=== PATIENT | male | born 1950 | race Caucasian/White ===

== ENCOUNTER 2017-08-24 07:22 | Emergency (ER) | payer OTHER ==
--- NOTE | 2017-08-24 07:48 | CT ---
CT OF THE BRAIN WITHOUT CONTRAST: Date: 08/24/17 COMPARISON: None. HISTORY: Right-sided weakness for 2 days. TECHNIQUE: Multiple contiguous axial images were obtained in a CT of the brain without contrast. FINDINGS: There is hypodensity in the right cerebellar hemisphere which likely represents a remote infarction. Another hypodense area without significant volume loss is seen in the right cerebellar hemisphere, which could be secondary to a more acute infarction. No large confluent infarction is seen. There is no evidence of hydrocephalus, intracranial hemorrhage, or extra-axial fluid collection. The calvarium and overlying soft tissues are unremarkable. Mucosal thickening is seen in the left ma xillary sinus. IMPRESSION: Hypodensities in the right cerebral hemisphere likely represent remote or subacute infarcts. POS: BAR
[2017-08-24] MEDS ORDERED: Aspirin 325 MG TAB ONE (07:59)
[2017-08-24 08:05] LABS: CKMB 1.7 ng/mL (0-6.6); Troponin I 0.013 ng/mL (< 0.028)
[2017-08-24 08:07] LABS: ALT (SGPT) 16 U/L (8-55); AST (SGOT) 22 U/L (5-34); Alkaline Phosphatase 47 U/L (40-150); Anion Gap 15 mmol/L (10-20); BUN (Urea Nitrogen) 19 mg/dL (8.4-25.7); Bilirubin, Total 0.5 mg/dL (0.2-1.2); Calc. Creatinine Clearance 0 mL/min (70-130); Carbon Dioxide 21 mmol/L (23-31); Chloride 105 mmol/L (98-107); Estimated GFR-MDRD 82; Globulin 3.9 g/dL (2.4-3.5); Glucose 101 mg/dL (80-115); Potassium 4.1 mmol/L (3.5-5.1); Protein, Total 7.9 g/dL (5.8-8.1); Sodium 137 mmol/L (136-145)
[2017-08-24 08:08] LABS: PTT 29.4 SEC (22.9-36.1); Prothrombin Time 13.4 SEC (12.0-14.7)
[2017-08-24 08:56] LABS: Hemoglobin 14.8 g/dL (14.0-18.0); Mean Corpuscular Volume 92.3 fL (80.0-94.0); Red Blood Cell (RBC) Count 4.92 mill/uL (4.70-6.10); White Blood Cell (WBC) Count 11.7 thou/uL (4.8-10.8)
[2017-08-24 08:57] LABS: #Basophils 0.2 thou/uL (0.0-0.2); #Eosinphils 0.4 thou/uL (0.0-0.7); #Lymphocytes 4.7 thou/uL (1.20-3.40); #Monocytes 1.3 thou/uL (0.11-0.59); #Neutrophils 5.2 thou/uL (1.40-6.50); %Basophils 1.5 % (0.0-1.0); %Eosinophils 3.3 % (0.0-10.0); %Lymphocytes 40.2 % (21.0-51.0); %Monocytes 11.1 % (0.0-10.0); %Neutrophils 43.9 % (42.0-75.0); Mean Corpuscular HGB CONC 32.6 g/dL (32.0-36.0); Mean Corpuscular Hemoglobin 30.1 pg (27.0-31.0); Mean Platelet Volume 8.7 fL (7.4-10.4); Platelet Count 340 thou/uL (130-400); RBC Distribution Width 13.1 % (11.5-14.5)
== END 2017-08-24 08:15 | disposition short-term general hospital (02) ==
LOC: MADERS 07:22
DX: I63.9 Cerebral infarction, unspecified (principal); R29.707 NIHSS score 7
CPT/HCPCS: 70450; 80053; 82553; 84484; 85025; 85610; 85730; 93005

== ENCOUNTER 2017-08-30 13:07 | Emergency (ER) | payer MEDICARE ==
[2017-08-30 13:36] LABS: #Basophils 0.1 thou/uL (0.0-0.2); #Eosinphils 0.2 thou/uL (0.0-0.7); #Lymphocytes 4.5 thou/uL (1.20-3.40); #Neutrophils 4.9 thou/uL (1.40-6.50); %Basophils 1.1 % (0.0-1.0); %Lymphocytes 42.1 % (21.0-51.0); %Monocytes 9.4 % (0.0-10.0); %Neutrophils 45.4 % (42.0-75.0); Hemoglobin 14.4 g/dL (14.0-18.0); Mean Corpuscular Hemoglobin 29.7 pg (27.0-31.0); Mean Corpuscular Volume 92.8 fl (80.0-94.0); Mean Platelet Volume 7.7 fL (7.4-10.4); Platelet Count 371 thou/uL (130-400); RBC Distribution Width 12.9 % (11.5-14.5); Red Blood Cell (RBC) Count 4.87 mill/uL (4.70-6.10); White Blood Cell (WBC) Count 10.8 thou/uL (4.8-10.8)
[2017-08-30 13:43] LABS: PTT 27.4 SEC (22.9-36.1); Prothrombin Time 13.3 SEC (12.0-14.7)
--- NOTE | 2017-08-30 13:53 | CT ---
CT BRAIN WITHOUT CONTRAST: Date: 08/30/17 HISTORY: Weakness, dizziness, and change in speech starting today. FINDINGS: Comparison made with exam of 08/24/17. The low density lesions in the right cerebellar hemisphere (one of them old/chronic and the other ag e-indeterminate) are again seen. The ventricular size is stable and the basilar cisterns are patent. No new areas of infarction, hemorrhage, or midline shift seen. The bony calvarium is intact. There is mild mucosal disease in the paranasal sinuses. IMPRESSION: Stable exam since 08/24/17. No new areas of acute infarction or hemorrhage are seen. If there is high clinical concern for an acute infarction, further evaluation with MRI (including di ffusion-weighted sequences) should be performed. 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 POS: OFF
--- NOTE | 2017-08-30 13:54 | RAD ---
CHEST 1 VIEW: Date: 08/30/17 HISTORY: CVA. FINDINGS: No comparison. The cardiac silhouette is magnified by projection. Pulmonary vasculature is unremarkable. Mediastinu m is midline. There is no confluent air space consolidation or evidence of pneumothorax. IMPRESSION: No active cardiopulmonary abnormalities are demonstrated. POS: [facility]
[2017-08-30 13:59] LABS: CKMB 0.8 ng/mL (0-6.6); Troponin I Less than 0.010 ng/mL (< 0.028)
[2017-08-30 14:41] LABS: Potassium 4.2 mmol/L (3.5-5.1); Sodium 138 mmol/L (136-145)
[2017-08-30 14:42] LABS: ALT (SGPT) 20 U/L (8-55); AST (SGOT) 20 U/L (5-34); Albumin 3.9 g/dL (3.4-4.8); Alkaline Phosphatase 42 U/L (40-150); BUN (Urea Nitrogen) 17 mg/dL (8.4-25.7); Bilirubin, Total 0.6 mg/dL (0.2-1.2); CK (CPK) 81 U/L (30-200); Calc. Creatinine Clearance 0 mL/min (70-130); Calcium 9.1 mg/dL (7.8-10.44); Carbon Dioxide 25 mmol/L (23-31); Chloride 104 mmol/L (98-107); Estimated GFR-MDRD 71; Globulin 3.9 g/dL (2.4-3.5); Glucose 99 mg/dL (80-115); Protein, Total 7.8 g/dL (5.8-8.1)
[2017-08-30 14:43] LABS: Anion Gap 13 mmol/L (10-20); Magnesium 2.2 mg/dL (1.6-2.6)
== END 2017-08-30 14:21 | disposition short-term general hospital (02) ==
LOC: MADERS 13:07
DX: I63.9 Cerebral infarction, unspecified (principal); Z79.899 Other long term (current) drug therapy
CPT/HCPCS: 36416; 70450; 71010; 80053; 82553; 83735; 83880; 84484; 85025; 85610; 85730; 93005; 94760

== ENCOUNTER 2018-03-25 15:26 | Outpatient (CLI) | payer MEDICARE ==
--- NOTE | 2018-03-25 16:17 | RAD ---
RIGHT RIBS THREE VIEWS: 03/25/18 HISTORY: Right chest wall pain. FINDINGS/IMPRESSION: Cortical remodeling of the anterolateral aspect of the right lower ribs has the appearance of old hea led fractures. No displaced fracture or pneumothorax are demonstrated. POS: BAR
--- NOTE | 2018-03-25 16:33 | CT ---
NONCONTRAST CT HEAD: 03/25/18 HISTORY: Headaches for two weeks. History of prior stroke. COMPARISON: None available. FINDINGS: There is scattered low density areas seen within the periventricular and subcortical white matter whi ch are nonspecific but likely related to mild chronic small vessel ischemic changes. Low density area s are seen within the right cerebellar hemisphere related to remote infarctions. There is no evidence of an acute cortical infarction, hemorrhage, mass effect or midline shift. Mild cerebral and cerebel lar volume loss is present. The ventricular system is normal in size, shape and position. There is a tiny air fluid level in the left maxillary antrum. Mastoid air cells are clear. Calvarial structures are intact. IMPRESSION: 1. No acute intracranial abnormalities demonstrated. 2. Remote infarctions right cerebellar hemisphere. 3. Chronic small vessel ischemic changes and cerebral volume loss. 4. Mucosal thickening/air fluid level in the left maxillary antrum. POS: [facility]
== END 2018-03-25 15:27 | disposition home or self-care (01) ==
LOC: MADCT 15:26
PROVIDERS: ATTEND Nurse Practitioner Family
DX: R51 Headache (principal); I69.30 Unspecified sequelae of cerebral infarction; S20.212S Contusion of left front wall of thorax, sequela; I67.82 Cerebral ischemia; G93.89 Other specified disorders of brain; J34.89 Other specified disorders of nose and nasal sinuses; Z91.81 History of falling
CPT/HCPCS: 70450